=== PATIENT | female | born 1945 | race Two or more races ===

== ENCOUNTER 2018-04-09 00:52 | Inpatient (IN) | payer OTHER ==
[~2018-04-09] VITALS: Ht 157.5 cm; Wt 96.6 kg
[~2018-04-09 00:52] MED LIST: ASPI-1169 PO; ATOR40TA PO; DEXL60CA3 PO; DICL75TA5 PO; ERGO500014 PO; LANS30CA56 PO; LISI40TA4 PO; MEGE400O4 PO; MYRBETRIQ 25 MG; SERT50TA12 PO; ZOLP10TA6 PO
[2018-04-09 02:00] VITALS: BP 136/72
[2018-04-09] MEDS ORDERED: ACETAMINOPHEN 325 MG TABLET PO PRN (02:00)
[2018-04-09] MEDS ORDERED: MAGNESIUM HYDROXIDE 30 ML UDC PO PRN (02:00)
[2018-04-09] MEDS ORDERED: MAG HYDROX/AL HYDROX/SIMETH 30 ML UDC PO PRN (02:00)
[2018-04-09] MEDS: TEMAZEPAM 7.5 MG CAPSULE PO PRN ×2 (02:43→20:34)
--- NOTE | 2018-04-09 02:43 | NUR ---
PATIENT IS DEPRESSED AND HAS PROBLEM SLEEPING, TEMAZEPAM 7.5 MG CAP 1 PO GIVEN.
[2018-04-09] MEDS ORDERED: MONT10TA22 PO (03:12)
[2018-04-09] MEDS ORDERED: METF-440 PO (03:13)
[2018-04-09] MEDS ORDERED: SOLI5TAB2 PO (03:16)
[2018-04-09] MEDS ORDERED: THEO600T PO (03:20)
[2018-04-09] MEDS ORDERED: DICL75TA5 PO (03:25)
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
[2018-04-09] MEDS ORDERED: CEPH-570 PO (03:33)
[2018-04-09 07:29] LABS: ALANINE AMINOTRANSFERASE 12 U/L (12-78); ALBUMIN 3.3 g/dL (3.4-5.0); ALKALINE PHOSPHATASE 67 U/L (46-116); ASPARTATE AMINOTRANSFERASE 15 U/L (15-37); BILIRUBIN,TOTAL 0.9 mg/dL (0.2-1.0); CALCIUM, SERUM 9.5 mg/dL (8.5-10.1); CARBON DIOXIDE 29 mmol/L (21-32); CHLORIDE 103 mmol/L (98-107); CREATININE 0.7 mg/dL (0.6-1.3); GLUCOSE 92 mg/dL (74-106); POTASSIUM 4.3 mmol/L (3.5-5.1); SODIUM SERUM 141 mmol/L (136-145); UREA NITROGEN, BLOOD 13 mg/dL (7-18)
[2018-04-09 09:51] VITALS: BP 127/69
[2018-04-09] MEDS: LORAZEPAM 0.5 MG TABLET PO PRN (11:42)
--- NOTE | 2018-04-09 11:42 | NUR ---
RN NOTES ADMINISTERED ATIVAN 0.5 MG PO PRN FOR ANXIETY PER PATIENT REQUEST, V/S TAKEN BP-127/69, P-72, CONTINUED MONITORING.
[2018-04-09 17:01] VITALS: BP 102/66
[2018-04-09 20:52] VITALS: BP 137/74
[2018-04-09] MEDS: TRAZODONE 50 MG TABLET PO SCH (22:00)
[2018-04-10 07:22] LABS: CHOLESTEROL 142 mg/dL (<200); HDL CHOLESTEROL 35 mg/dL (40-60); LDL 101 mg/dL (0-99); TRIGLYCERIDES 99 mg/dL (30-150)
[2018-04-10 08:00] VITALS: BP 118/59
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
--- NOTE | 2018-04-10 12:48 | NUR ---
UR NOTE: SW receive a phone call from PEG Paz WITH [facility]. HER DIRECT LINE [phone] stating that pt was authorized 2 additional days with verbal clinical review due on 04/12/18.
--- NOTE | 2018-04-10 14:51 | NUR ---
LETICIA faxed SNF referral to admissions at [facility] Address: [address], [place] [address] for possible ALLI approval.
--- NOTE | 2018-04-10 15:04 | NUR ---
SW received an email from Bo Denney [email or web address]> after care technician at [facility] [phone] option 1 with a list of current providers for pt.
[2018-04-10 16:14] VITALS: BP 123/59
[2018-04-10] MEDS ORDERED: ALBU2TAB4 PO (17:31)
[2018-04-10] MEDS ORDERED: CEPHALEXIN MONOHYDRATE 500 MG CAPSULE PO SCH (21:00)
[2018-04-10] MEDS: TRAZODONE 50 MG TABLET PO SCH (21:10)
[2018-04-10] MEDS: TEMAZEPAM 7.5 MG CAPSULE PO PRN (21:10)
[2018-04-10] MEDS: LISINOPRIL (20MG) 20 MG TABLET PO SCH (21:10)
[2018-04-10 21:11] VITALS: BP 129/61
[2018-04-10] MEDS ORDERED: ATORVASTATIN 40 MG TABLET PO SCH (22:00)
[2018-04-11] MEDS: TRAZODONE 50 MG TABLET PO SCH ×2 (01:35→21:40)
[2018-04-11] MEDS: LORAZEPAM 0.5 MG TABLET PO PRN ×2 (01:35→11:02)
[2018-04-11 08:00] VITALS: BP 137/56
[2018-04-11] MEDS ORDERED: THEOPHYLLINE ANHYDROUS 300 MG CAP.SR.24H PO SCH (09:00)
[2018-04-11] MEDS ORDERED: SOLIFENACIN SUCCINATE 5 MG TABLET PO SCH (09:00)
[2018-04-11] MEDS: OXYBUTYNIN CHLORIDE 5 MG TABLET PO SCH ×2 (09:07→16:49)
[2018-04-11] MEDS: PANTOPRAZOLE 40 MG TABLET.DR PO SCH (09:07)
[2018-04-11] MEDS: ASPIRIN 81 MG TAB.CHEW PO SCH (09:07)
[2018-04-11] MEDS: MONTELUKAST SODIUM (10MG) 10 MG TABLET PO SCH (09:07)
[2018-04-11] MEDS: DICLOFENAC SODIUM 25 MG TABLET.DR PO SCH ×2 (09:07→16:49)
[2018-04-11] MEDS: METFORMIN 500 MG TABLET PO SCH (09:08)
[2018-04-11] MEDS: ALBUTEROL SULFATE 2 MG TABLET PO SCH ×2 (11:03→16:50)
[2018-04-11 16:00] VITALS: BP 104/48
[2018-04-11] MEDS: THEOPHYLLINE TAB 24HR 400 MG TAB.SR. PO SCH (16:49)
[2018-04-11] MEDS: LISINOPRIL (20MG) 20 MG TABLET PO SCH (17:16)
[2018-04-11 20:05] VITALS: BP 95/56
[2018-04-11] MEDS: ATORVASTATIN 40 MG TABLET PO SCH (21:41)
[2018-04-11 23:00] VITALS: BP 115/72
[2018-04-12 08:00] VITALS: BP 97/52
[2018-04-12] MEDS: THEOPHYLLINE TAB 24HR 400 MG TAB.SR. PO SCH (08:34)
[2018-04-12] MEDS: ALBUTEROL SULFATE 2 MG TABLET PO SCH ×3 (08:34→17:41)
[2018-04-12] MEDS: METFORMIN 500 MG TABLET PO SCH (08:34)
[2018-04-12] MEDS: DICLOFENAC SODIUM 25 MG TABLET.DR PO SCH ×3 (08:34→17:41)
[2018-04-12] MEDS: MONTELUKAST SODIUM (10MG) 10 MG TABLET PO SCH (08:35)
[2018-04-12] MEDS: risperiDONE 1 MG TABLET PO SCH ×3 (08:35→17:41)
[2018-04-12] MEDS: PANTOPRAZOLE 40 MG TABLET.DR PO SCH (08:35)
[2018-04-12] MEDS: OXYBUTYNIN CHLORIDE 5 MG TABLET PO SCH ×3 (08:35→17:41)
[2018-04-12] MEDS: ASPIRIN 81 MG TAB.CHEW PO SCH (08:35)
--- NOTE | 2018-04-12 09:22 | NUR ---
UR NOTE: LETICIA left verbal clinical review via voicemail with PEG Paz WITH [facility]. HER DIRECT LINE [phone].
--- NOTE | 2018-04-12 14:25 | NUR ---
UR NOTE: SW receive a phone call from PEG Paz WITH [facility]. HER DIRECT LINE [phone] stating that pt was authorized 1 additional days with peer pt peer due on 04/13/18.
[2018-04-12] MEDS: LISINOPRIL (20MG) 20 MG TABLET PO SCH (17:41)
[2018-04-12 17:47] VITALS: BP 102/83
[2018-04-12 20:00] VITALS: BP 105/50
[2018-04-12] MEDS: TRAZODONE 50 MG TABLET PO SCH (21:19)
[2018-04-12] MEDS: ATORVASTATIN 40 MG TABLET PO SCH (21:19)
[2018-04-12] MEDS: LORAZEPAM 0.5 MG TABLET PO PRN (21:20)
[2018-04-12] MEDS: TEMAZEPAM 7.5 MG CAPSULE PO PRN (22:52)
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
--- NOTE | 2018-04-13 07:23 | NUR ---
PAGED DR. ROCA REGARDING PT'S EPISODE OF NAUSEA AND VOMITING, SMALL AMOUNT. AWAITING FOR CALLBACK. WILL ENDORSE TO NEXT SHIFT NURSE FOR FOLLOW UP.
--- NOTE | 2018-04-13 07:32 | NUR ---
PT IS NAUSEOUS, MAALOX GIVEN ORDERED, SMALL AMOUNT BROWN UNDIGESTED FOOD, WILL CONTINUE TO MONITOR.
[2018-04-13 08:00] VITALS: BP 113/69
--- NOTE | 2018-04-13 08:14 | NUR ---
DR. MCWILLIAMS MADE AWARE THAT PT. IS VOMITING AND ORDERED ZOFRAN 0.4 MG PO X1. Addendum: 04/13/18 at 0819 by MICHAEL FOSTER RN ORDERED ZOFRAN 4 MG PO X1.
[2018-04-13] MEDS ORDERED: ONDANSETRON 4 MG TAB.RAPDIS PO ONE (08:30)
[2018-04-13] MEDS: PANTOPRAZOLE 40 MG TABLET.DR PO SCH (08:38)
[2018-04-13] MEDS: ASPIRIN 81 MG TAB.CHEW PO SCH (08:39)
[2018-04-13] MEDS: MONTELUKAST SODIUM (10MG) 10 MG TABLET PO SCH (08:39)
[2018-04-13] MEDS: METFORMIN 500 MG TABLET PO SCH (08:39)
[2018-04-13] MEDS: OXYBUTYNIN CHLORIDE 5 MG TABLET PO SCH ×2 (08:39→16:12)
[2018-04-13] MEDS: DICLOFENAC SODIUM 25 MG TABLET.DR PO SCH ×3 (08:39→16:14)
[2018-04-13] MEDS: risperiDONE 1 MG TABLET PO SCH ×2 (08:39→16:12)
[2018-04-13] MEDS: THEOPHYLLINE TAB 24HR 400 MG TAB.SR. PO SCH (08:40)
[2018-04-13] MEDS: ALBUTEROL SULFATE 2 MG TABLET PO SCH ×2 (08:40→16:12)
--- NOTE | 2018-04-13 11:15 | NUR ---
DR. DUMONT GAVE AN ORDER TO D/C HOLD AND D/C HOME AND TO FOLLOW UP WITH PSYCH AND MEDICAL DOCTORS. PT. WITHOUT DISTRESS, DENIES SUICIDAL AND HOMICIDAL. DR. MCWILLIAMS MADE AWARE OF THE DISCHARGE AND PROVIDE A PRESCRIPTION. BELONGINGS READY AND DISCHARGE PAPERS READY.
--- NOTE | 2018-04-13 15:23 | NUR ---
DISCHARGE NOTE: Pt will be discharged between 6:00-7:00pm [facility] on this [facility] [address] [facility] [address] [facility] private vehicle being picked up by Son Alfredo [phone]. Pts mood is pleasant with congruent affect. Pt denied suicidal/homicidal ideations and denied visual/auditory hallucinations. LETICIA provided pt with a referral to [facility] [address] [place] [address] and faxed continuing care packet to [phone] for a follow up appointment. Pt will follow up with Home Energy Auditor: Dr. Usha Real [address] [address] [phone] and schedule a follow-up appointment. The multidisciplinary exitcare form was done, printed, signed, and given to the patient. Addendum: 04/16/18 at 1406 by SALVATORE EKLLY . For smoking cessation, patient was referred to the [employer] or [employer] [phone]
[2018-04-13 16:00] VITALS: BP 110/69
[2018-04-13 17:45] VITALS: BP 105/58
[2018-04-13] MEDS: LISINOPRIL (20MG) 20 MG TABLET PO SCH (17:45)
--- NOTE | 2018-04-13 19:25 | NUR ---
Pt. left the unit with belongings and picked by her son Heidi Espinoza. Left the unit via a wheelchair and wheeled by staff to the lobby. Pt. was instructed on meds to continue at home and verbalizes understanding and advised to make a follow up to her outside psychiatrist and medical doctors and agreed. Left without distress, alert/ oriented and on stable condition.
--- NOTE | 2018-04-16 14:08 | NUR ---
UR NOTE: LETICIA left verbal discharge summary via voicemail with PEG Paz WITH [facility]. HER DIRECT LINE [phone].
[2018-04-17] MEDS ORDERED: LEVO750T21 PO (08:49)
[2018-04-17] MEDS ORDERED: LISI-603 PO (08:51)
== END 2018-04-13 19:26 | disposition home or self-care (01) | DRG 885 ==
LOC: GPS 01:20
PROVIDERS: ADMIT Psychiatry & Neurology Psychiatry; ATTEND Internal Medicine
DX: F29 Unspecified psychosis not due to a substance or known physiological condition (principal); F32.9 Major depressive disorder, single episode, unspecified; E11.9 Type 2 diabetes mellitus without complications; I10 Essential (primary) hypertension; E78.5 Hyperlipidemia, unspecified; J45.909 Unspecified asthma, uncomplicated; E66.01 Morbid (severe) obesity due to excess calories; Z68.39 Body mass index [BMI] 39.0-39.9, adult; M19.90 Unspecified osteoarthritis, unspecified site; Z96.653 Presence of artificial knee joint, bilateral
CPT/HCPCS: 36415; 80053-TC; 80061-TC; 87081-TC; 97110-TC; 97112-TC; 97116-TC; 97530-TC; A6253; A6402; Q0162

== ENCOUNTER 2018-04-16 10:42 | Inpatient (IN) | payer OTHER ==
[~2018-04-16] VITALS: Ht 162.6 cm; Wt 76.7 kg
[~2018-04-16 10:42] MED LIST changes: +ALBU2TAB4 PO; +CEPH-570 PO; -ERGO500014 PO; -LANS30CA56 PO; -MEGE400O4 PO; +METF-440 PO; +MONT10TA22 PO; -MYRBETRIQ 25 MG; -SERT50TA12 PO; +SOLI5TAB2 PO; +THEO600T PO; -ZOLP10TA6 PO
--- NOTE | 2018-04-16 11:00 | NUR ---
BIB ra c/o weakness,pt states"I can't stand, I can't sit, I can't lay down". PT AAOX3, VSS. DENIES HORTON, CP, SOB, DIZZINESS, N/V/D @ THIS TIME. PT SPEAKING FLUENTLY, NO FACIAL DROOP, NO ARM DRIFTING, STRONG EQUAL LOG CHIPPER. PT UNABLE TO LIFT UP RT LEG BUT ABLE TO MOVE IT SIDE TO SIDE. PT SEEN & EVAL'D BY DR. BROWN. WILL CONT TO MONITOR.
[2018-04-16 11:04] LABS: BASOPHILS % (AUTO) 0.6 % (0.0-2.0); EOSINOPHILS % (AUTO) 5.8 % (0.0-6.0); HEMATOCRIT 39 % (33-45); HEMOGLOBIN 12.6 g/dL (11.5-14.8); LYMPHOCYTES # (AUTO) 1.1 /CMM (0.8-4.8); LYMPHOCYTES % (AUTO) 20.8 % (20.0-44.0); MEAN CORPUSCULAR HGB CONC 32 g/dl (31.0-36.0); MEAN CORPUSCULAR VOLUME 89 fL (82-100); MONOCYTES # (AUTO) 0.5 /CMM (0.1-1.30); MONOCYTES % (AUTO) 8.9 % (2.0-12.0); NEUTROPHILS # (AUTO) 3.4 /CMM (1.8-8.9); NEUTROPHILS % (AUTO) 63.9 % (43.0-81.0); PLATELET COUNT (AUTO) 277 /CMM (150-450); RDW COEFFICIENT OF VARIATION 13.5 (11.5-15.0); RED BLOOD CELL COUNT(AUTO) 4.38 MIL/uL (4.0-5.2); WHITE BLOOD COUNT (AUTO) 5.3 K/uL (4.3-11.0)
[2018-04-16 11:13] LABS: CALCIUM, SERUM 10.4 mg/dL (8.5-10.1); CARBON DIOXIDE 33 mmol/L (21-32); CHLORIDE 102 mmol/L (98-107); CREATININE 1.2 mg/dL (0.6-1.3); GLUCOSE 113 mg/dL (74-106); SODIUM SERUM 140 mmol/L (136-145); UREA NITROGEN, BLOOD 43 mg/dL (7-18)
[2018-04-16 11:19] LABS: ALANINE AMINOTRANSFERASE 16 U/L (12-78); ALBUMIN 3.8 g/dL (3.4-5.0); ALKALINE PHOSPHATASE 75 U/L (46-116); ASPARTATE AMINOTRANSFERASE 24 U/L (15-37); BILIRUBIN,DIRECT 0.1 mg/dL (0.0-0.2); BILIRUBIN,TOTAL 0.7 mg/dL (0.2-1.0); TOTAL PROTEIN, SERUM 7.9 g/dL (6.4-8.2)
[2018-04-16 11:20] LABS: ALCOHOL, BLOOD < 3 mg/dL (0-0)
[2018-04-16 11:21] LABS: TROPONIN I < 0.017 ng/mL (0.00-0.056)
--- NOTE | 2018-04-16 11:40 | NUR ---
PT ON HER CELLPHONE, TALKING LOUD, NAD NOTED @ THIS TIME.
--- NOTE | 2018-04-16 12:22 | NUR ---
CALLED [facility] FOR PANEL CALL AND DR MARRERO WAS PAGED
--- NOTE | 2018-04-16 13:49 | NUR ---
PT IS ASSIGNED TO MED SURG RM#: [id number], DX: GENERALIZED WEAKNESS, AND ACCEPTING MD: DR MARRERO
[2018-04-16] MEDS ORDERED: ZOLPIDEM TARTRATE 5 MG TABLET PO PRN ×2 (14:00→14:15)
[2018-04-16] MEDS ORDERED: IV NS 0.9% 1,000 ML IV SCH (14:00)
[2018-04-16] MEDS ORDERED: ACETAMINOPHEN 325 MG TABLET PO PRN ×2 (14:00→14:15)
[2018-04-16] MEDS ORDERED: MAG HYDROX/AL HYDROX/SIMETH 30 ML UDC PO PRN ×2 (14:00→14:15)
[2018-04-16] MEDS ORDERED: Z GUARD REMEDY 2 OZ OINT TP PRN ×2 (14:00→14:15)
[2018-04-16] MEDS ORDERED: MAGNESIUM HYDROXIDE 30 ML UDC PO PRN ×2 (14:00→14:15)
[2018-04-16] MEDS ORDERED: ONDANSETRON HCL/PF 4 MG/2 ML VIAL IVP PRN ×2 (14:00→14:15)
[2018-04-16] MEDS ORDERED: HYDROCODONE/APAP 5/325MG 1 EACH TABLET PO PRN ×2 (14:00→14:15)
[2018-04-16 15:00] VITALS: BP 136/61
--- NOTE | 2018-04-16 15:00 | NUR ---
PT ARRIVED VIA GURNEY. PT AWARE A/OX4. BREATHING UNLABORED AND EVEN , NO DISTRESS NOTED, DENIES PAIN AT THIS TIME. PT ADMITTED WITH DX GENERAL WEAKNESS. FALL PREVENTION PLAN INITIATED. ORIENTED TOO UNIT AND ROOM. SKIN INTACT, IV RAC G22. HOME MEDICATION SENT TO PHARMACY. WILL F/U WITH ADMITTING DOCTOR ORDERS.
[2018-04-16 16:00] VITALS: BP 136/61
[2018-04-16] MEDS: IV NS 0.9% 1,000 ML IV SCH (16:44)
[2018-04-16] MEDS ORDERED: ALBUTEROL SULFATE 2 MG TABLET PO SCH (17:00)
[2018-04-16] MEDS ORDERED: LISINOPRIL (20MG) 20 MG TABLET PO SCH (18:00)
[2018-04-16] MEDS: DICLOFENAC SODIUM 25 MG TABLET.DR PO SCH (18:09)
[2018-04-16] MEDS: ALBUTEROL SULFATE 2 MG TABLET PO SCH (18:10)
--- NOTE | 2018-04-16 19:25 | NUR ---
RN OPENING NOTES RECEIVED PT ASLEEP IN BED, EASILY AROUSABLE, ALERT AND ORIENTED X 4, DENIES PAIN, NO SOB NOTED, BREATHING EVEN AND UNLABORED AND IN NO ACUTE DISTRESS. ALL PATIENT'S NEEDS ATTENDED TO, CALL LIGHT PLACED WITHIN EASY REACH. PLACED BED IN LOW POSITION AND LOCKED IN PLACE.WILL CONTINUE TO MONITOR.
[2018-04-16 20:00] VITALS: BP 114/68
[2018-04-16] MEDS ORDERED: TOLTERODINE 2 MG TABLET PO SCH (21:00)
[2018-04-16] MEDS ORDERED: ATORVASTATIN 40 MG TABLET PO SCH ×2 (22:00)
[2018-04-16 23:14] LABS: APPEARANCE,URINE SL CLOUDY (CLEAR); BILIRUBIN,URINE NEGATIVE (NEGATIVE); BLOOD, URINE TRACE-INTA Ery/uL (NEGATIVE); COLOR,URINE YELLOW (YELLOW); KETONES,URINE NEGATIVE (NEGATIVE); LEUKOCYTE ESTERASE ,URINE 1+ (NEGATIVE); NITRITE, URINE POSITIVE (NEGATIVE); PROTEIN,URINE NEGATIVE (NEGATIVE); UGLUCOSE NEGATIVE (NEGATIVE); UROBILINOGEN,URINE 0.2 EU/dL (0.2)
[2018-04-16 23:22] LABS: BACTERIA,URINE Many /HPF (None Seen); RBC,URINE 0-2 /HPF (0-2); SQUAMOUS EPITHELIAL CELL,UR Few /HPF (None Seen); WBC,URINE 21-50 /HPF (0-3)
--- NOTE | 2018-04-16 23:43 | NUR ---
RN NOTE RECEIVED UA RESULT, RELAYED TO DR. VAZQUEZ WITH NO NEW ORDERS. PATIENT IS AFEBRILE, DENIES URINARY URGENCY, NO DYSURIA AND NO HEMATURIA. WILL CONTINUE TO MONITOR PT. GOOD GINA CARE RENDERED. URINE C&S PENDING. WILL CONTINUE TO MONITOR PT.
[2018-04-17] MEDS: IV NS 0.9% 1,000 ML IV SCH ×2 (05:30→16:47)
--- NOTE | 2018-04-17 06:35 | NUR ---
RN CLOSING NOTES PATIENT IN BED, ASLEEP BUT EASILY AROUSABLE, ALERT AND ORIENTED X 4, NO SOB NOTED, BREATHING EVEN AND UNLABORED. NO S/S OF DISTRESS NOTED. PT SLEPT WELL THROUGHOUT THE SHIFT. IVF INFUSING WELL ORDERED AND PATIENT IS TOLERATING WELL. ALL PATIENT'S NEEDS ATTENDED TO THROUGHOUT THE SHIFT. PLACED CALL LIGHT WITHIN EASY REACH. WILL ENDORSE TO AM SHIFT NURSE FOR CONTINUITY OF CARE.
[2018-04-17] MEDS ORDERED: PANTOPRAZOLE 40 MG TABLET.DR PO SCH (07:30)
[2018-04-17] MEDS ORDERED: DEXILANT 60 MG PO SCH (07:30)
[2018-04-17 08:00] VITALS: BP 121/57
--- NOTE | 2018-04-17 08:00 | NUR ---
MS RN AM NOTES RECEIVED PT AWAKE IN BED, ALERT AND ORIENTED X 4, DENIES PAIN, NO SOB NOTED, BREATHING EVEN AND UNLABORED AND IN NO ACUTE DISTRESS.NEEDS ATTENDED TO, ASSISTED TO THE TOILET WITH FWW.CALL LIGHT PLACED WITHIN EASY REACH. PLACED BED IN LOW POSITION AND LOCKED IN PLACE.WILL CONTINUE TO MONITOR
[2018-04-17] MEDS: DICLOFENAC SODIUM 25 MG TABLET.DR PO SCH ×2 (08:24→17:25)
[2018-04-17] MEDS: ALBUTEROL SULFATE 2 MG TABLET PO SCH ×2 (08:29→17:25)
[2018-04-17] MEDS ORDERED: LEVO750T21 PO (08:49)
[2018-04-17] MEDS ORDERED: LISI-603 PO (08:51)
[2018-04-17 09:00] VITALS: BP_SYST 110; BP_SYST 113; BP_SYST 121; BP_DIAS 61; BP_DIAS 67; BP_DIAS 80
[2018-04-17] MEDS ORDERED: LEVOFLOXACIN (250MG) 250 MG TABLET PO SCH (09:00)
[2018-04-17] MEDS ORDERED: THEOPHYLLINE TAB 24HR 400 MG TAB.SR. PO SCH (09:00)
[2018-04-17] MEDS ORDERED: SOLIFENACIN SUCCINATE 5 MG TABLET PO SCH ×3 (09:00)
[2018-04-17] MEDS ORDERED: METFORMIN 500 MG TABLET PO SCH ×2 (09:00)
[2018-04-17] MEDS ORDERED: MONTELUKAST SODIUM (10MG) 10 MG TABLET PO SCH ×2 (09:00)
[2018-04-17] MEDS ORDERED: ASPIRIN 81 MG TAB.CHEW PO SCH ×2 (09:00)
[2018-04-17] MEDS ORDERED: THEOPHYLLINE ANHYDROUS 300 MG PO SCH (09:00)
[2018-04-17 11:08] LABS: CALCIUM, SERUM 9.6 mg/dL (8.5-10.1); CARBON DIOXIDE 28 mmol/L (21-32); CHLORIDE 103 mmol/L (98-107); CREATININE 1.1 mg/dL (0.6-1.3); GLUCOSE 125 mg/dL (74-106); POTASSIUM 4.3 mmol/L (3.5-5.1); SODIUM SERUM 138 mmol/L (136-145); UREA NITROGEN, BLOOD 35 mg/dL (7-18)
[2018-04-17 11:24] LABS: THYROID STIMULATING HORMONE 2.885 uIU/mL (0.358-3.74)
[2018-04-17 16:00] VITALS: BP 145/79
--- NOTE | 2018-04-17 16:00 | NUR ---
INFORMED DR HASSAN OF PT WALKING WITH FWW WITH STEADY GAIT.PT STATED THAT SHE HAS FWW AT HOME AND DOESN'T NEED A NEW ONE.PT REFUSED HOME HEALTH.RELAYED THE ECHO,LAB RESULTS FOR TODAY WITH ORDERS FOR OK TO DC PT HOME.
--- NOTE | 2018-04-17 16:19 | NUR ---
DISCHARGE INSTRUCTIONS,MED TEACHING AND PRESCRIPTION GIVEN TO PT.IV H/L REMOVED TO RT AC WITH NO BLEEDING NOTED.WAITING FOR PT'S SON TO PICK HER UP.
[2018-04-17 17:24] VITALS: BP 145/79
[2018-04-17] MEDS ORDERED: LISINOPRIL (20MG) 20 MG TABLET PO SCH (18:00)
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
--- NOTE | 2018-04-17 19:45 | NUR ---
RN OPENING NOTES Pt IS BEING DISCHARGED TONIGHT, WAITING FOR HER SON TO COME PICK HER UP AT THE HOSPITAL. FOUND Pt SITTING ON CHAIR, WATCHING TV. Pt IS A/OX4, VERBAL, ABLE TO MAKE NEEDS KNOWN. NO S/S OF ACUTE DISTRESS OR SOB NOTED. SAFETY MEASURES IN PLACE. CALL LIGHT WITHIN REACH. TOLD Pt TO PRESS CALL LIGHT WHEN HER SON HAS ARRIVED. WILL HAVE TO WHEELCHAIR Pt DOWN TO THE LOBBY ONCE HER RIDE IS HERE. WILL CONTINUE TO MONITOR Pt UNTIL Pt LEAVES [facility].
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
== END 2018-04-17 19:50 | disposition home health service (06) | DRG 690 ==
LOC: ER 10:43 → MED 14:54
PROVIDERS: ADMIT Internal Medicine; ATTEND Internal Medicine
DX: N39.0 Urinary tract infection, site not specified (principal); N17.9 Acute kidney failure, unspecified; E11.9 Type 2 diabetes mellitus without complications; E66.9 Obesity, unspecified; E78.5 Hyperlipidemia, unspecified; E86.9 Volume depletion, unspecified; J45.909 Unspecified asthma, uncomplicated; Z96.653 Presence of artificial knee joint, bilateral; Z96.643 Presence of artificial hip joint, bilateral; I10 Essential (primary) hypertension; Z79.84 Long term (current) use of oral hypoglycemic drugs; M19.90 Unspecified osteoarthritis, unspecified site; Z68.29 Body mass index [BMI] 29.0-29.9, adult
CPT/HCPCS: 36415; 71045-TC; 80048-TC; 80076-TC; 81000-TC; 84443-TC; 84484-TC; 85025-TC; 87081-TC; 87086-TC; 93307-TC; A4606; G0378; G0480; J7030; Z7610

== ENCOUNTER 2021-08-18 13:16 | Emergency (ER) | payer MEDICARE, OTHER ==
[~2021-08-18] VITALS: Ht 157.5 cm; Wt 77.1 kg
[~2021-08-18 13:16] MED LIST changes: -CEPH-570 PO; -DICL75TA5 PO; +LEVO750T21 PO; +LISI20TA30 PO; -LISI40TA4 PO; -THEO600T PO; +THEO600T5 PO
--- NOTE | 2021-08-18 13:46 | NUR ---
[id number] HOME C/O GENERALIZED WEAKNESS, NO APETITE X 3 DAYS. THE PATIENT DENIES SOB. RESPIRATION REGULAR AND UNLABORED. DENIES PAIN. WILL CONTINUE TO MONITOR THE PATIENT.
[2021-08-18] MEDS ORDERED: VORT5TAB PO (13:52)
[2021-08-18] MEDS ORDERED: MYRBETRIQ PO (13:52)
[2021-08-18] MEDS ORDERED: ZINC1CAP3 PO (13:52)
[2021-08-18] MEDS ORDERED: DICL75TA5 PO (13:52)
[2021-08-18] MEDS ORDERED: DAPA5TAB PO (13:52)
[2021-08-18 14:56] LABS: BASOPHILS % (AUTO) 0.5 % (0.0-2.0); EOSINOPHILS % (AUTO) 1.8 % (0.0-6.0); HEMATOCRIT 38 % (33-45); HEMOGLOBIN 12.6 g/dL (11.5-14.8); LYMPHOCYTES # (AUTO) 1.1 K/uL (0.8-4.8); LYMPHOCYTES % (AUTO) 17.5 % (20.0-44.0); MEAN CORPUSCULAR HGB CONC 33 g/dl (31.0-36.0); MEAN CORPUSCULAR VOLUME 90 fL (82-100); MONOCYTES # (AUTO) 0.7 K/uL (0.1-1.30); MONOCYTES % (AUTO) 10.9 % (2.0-12.0); NEUTROPHILS # (AUTO) 4.4 K/uL (1.8-8.9); NEUTROPHILS % (AUTO) 69.3 % (43.0-81.0); PLATELET COUNT (AUTO) 309 K/uL (150-450); RED BLOOD CELL COUNT(AUTO) 4.18 MIL/uL (4.0-5.2); WHITE BLOOD COUNT (AUTO) 6.4 K/uL (4.3-11.0)
[2021-08-18 15:12] LABS: CALCIUM, SERUM 10.5 mg/dL (8.5-10.1); CARBON DIOXIDE 37 mmol/L (21-32); CHLORIDE 99 mmol/L (98-107); CREATININE 0.7 mg/dL (0.6-1.3); GLUCOSE 93 mg/dL (74-106); POTASSIUM 4.2 mmol/L (3.5-5.1); SODIUM SERUM 139 mmol/L (136-145); UREA NITROGEN, BLOOD 14 mg/dL (7-18)
[2021-08-18 15:18] LABS: ALANINE AMINOTRANSFERASE 17 U/L (12-78); ALBUMIN 3.6 g/dL (3.4-5.0); ALKALINE PHOSPHATASE 68 U/L (46-116); ASPARTATE AMINOTRANSFERASE 10 U/L (15-37); BILIRUBIN,DIRECT 0.2 mg/dL (0.0-0.2); BILIRUBIN,TOTAL 0.9 mg/dL (0.2-1.0); LIPASE 154 U/L (73-393); TOTAL PROTEIN, SERUM 7.3 g/dL (6.4-8.2)
[2021-08-18 16:40] LABS: BILIRUBIN,URINE NEGATIVE (NEGATIVE); COLOR,URINE YELLOW (YELLOW); LEUKOCYTE ESTERASE ,URINE NEGATIVE (NEGATIVE); NITRITE, URINE NEGATIVE (NEGATIVE); PH,URINE 8.5 (5.0-8.0); PROTEIN,URINE TRACE mg/dl (NEGATIVE); UGLUCOSE NEGATIVE (NEGATIVE)
[2021-08-18 16:56] LABS: RBC,URINE 0-2 /HPF (0-2)
[2021-08-18 16:57] LABS: BACTERIA,URINE 2+ /HPF (None Seen); MUCUS,URINE Few /LPF (None Seen); URINE AMORPHOUS URATE Few /HPF (None Seen)
--- NOTE | 2021-08-18 17:39 | NUR ---
[facility] CALLED WITH ETA OF 60 MINS PER LEX.
[2021-08-18 17:49] VITALS: BP 137/85
--- NOTE | 2021-08-18 17:49 | NUR ---
Patient discharged to home in stable condition. Written and verbal after care instructions given. Patient verbalizes understanding of instruction.
== END 2021-08-18 17:49 | disposition home or self-care (01) ==
LOC: ER 13:37
DX: R53.83 Other fatigue (principal); I10 Essential (primary) hypertension; E11.9 Type 2 diabetes mellitus without complications; Z79.82 Long term (current) use of aspirin; Z79.51 Long term (current) use of inhaled steroids; Z79.899 Other long term (current) drug therapy
CPT/HCPCS: 36415; 71045-TC; 80048-TC; 80076-TC; 81001; 83690-TC; 84484-TC; 85025-TC; 87086-TC